=== PATIENT | female | born 1965 | race African-American/Black ===

== ENCOUNTER → 2021-01-31 | Outpatient (CLI) | payer OTHER ==
[~2021-01-31] MED LIST: 0.9 % SODIUM CHLORIDE 10 ML DISP.SYRIN. ID ONE; GADOTERATE 5 MMOL/10ML VIAL. INT ART ONE; IOHEXOL 300 MG/ML 50 ML VIAL. INT ART ONE; LIDOCAINE 1% Multi-Dose 20 ML VIAL. ID ONE
--- NOTE | 2021-01-31 16:42 | KCIC ---
EXAM: Right hip joint injection WITH Fluoroscopic guidance DATE: 01/31/2021 2:00 PM CLINICAL HISTORY: Chronic right hip pain COMPARISON: None pertinent TECHNIQUE: The patient was informed of the indications and alternatives for this procedure as well as risks and benefits. No immediate contraindication identified. The patient provided informed, written consent. Laterality was confirmed by the entire team following a time out. Following initial right hip joint localization, a suitable area was sterilely prepped and draped. Loc al anesthesia was administered with 1% xylocaine. With intermittent fluoroscopic observation, a 22-ga uge spinal needle was advanced into the right hip joint sheath/capsule with confirmation of intra-syn ovial position with infusion of less than 1 cc iodinated contrast. Subsequent infusion 12 cc of solut ion containing 10 cc saline, 5 cc lidocaine 1%, 5 cc Isovue and 0.1 cc gadolinium. Hemostasis with lo aime pressure. Local clinical exam negative for immediate complication. Patient informed re local potential signs or symptoms that may indicate need to return to ER/Ordering physician for further evaluation. Patient informed re precautionary measures after intra-synovial in jection of anesthetic. Patient expressed understanding. Performing Physicians: Dr. Stephany Man Blood Loss: 0 cc Total Fluoroscopy time: 8 seconds Total spot images taken: 0 Total number of screen save images saved: 2 IMPRESSION: Successful intra-synovial injection right hip with gadolinium [id number] per clinical request. Electronically signed by: Leander Man MD (01/31/2021 4:40 PM) [id number]
--- NOTE | 2021-02-01 15:11 | KCIC ---
EXAM: MR arthrogram Right hip DATE: 01/31/2021 4:55 PM INDICATION: Right hip pain COMPARISON: None TECHNIQUE: Multiplanar, multisequence MR imaging of the right hip was performed following the adminis tration of intra-articular gadolinium contrast. Please see separate procedure report for full injecti on. FINDINGS: Iatrogenic distention of the right hip joint with gadolinium contrast. Negative fluid distention of t he greater trochanteric bursa. Ligaments: Ligamentum teres is intact. Negative nodularity or thickening. Morphology: Normal proximal femoral angle, 134 degrees. Normal acetabular anteversion. Normal alpha angle, 43 degrees. Articular cartilage: Articular cartilage preserved throughout. Negative divot or eccentric thinning. Acetabular labrum: Trace irregularity at the superior labrum with mild undersurface signal irregulari ty. Negative periacetabular ganglion. Periarticular tendons: Regional tendinous attachments are intact including hamstring, iliopsoas and g luteus medius tendons. Bone marrow: Bone marrow signal is normal. Negative fracture or AVN. Visceral pelvis: Incomplete survey of marginal visceral structures of the pelvis. Grossly normal with out mass lesion or free intraperitoneal fluid. Negative large pelvic wall adenopathy. IMPRESSION: 1. Trace irregularity at the superior labrum may represent labral fraying or age-related degenerativ e change. Otherwise, no discrete labral tear is identified. 2. Normal proximal femoral/acetabular morphology. Electronically signed by: Leander Man MD (02/01/2021 3:09 PM) [id number]
== END | disposition home or self-care (01) ==
LOC: KCIC 13:35
PROVIDERS: ATTEND Family Medicine
DX: G89.29 Other chronic pain (principal); M25.551 Pain in right hip; Z79.899 Other long term (current) drug therapy
CPT/HCPCS: 27093; 73719; 77002; A9575; J3490; Q9967; 73525